=== PATIENT | male | born 1980 | race Caucasian/White ===

== ENCOUNTER 2018-03-06 09:03 | Emergency (ER) | payer BC ==
--- NOTE | 2018-03-06 09:55 | UC ---
Lower Extremity/Ankle HPI - HPI Summary HPI Summary: 37 yo male presents with LEFT foot pain. He tells me that he has a hx of gout and has had it here in the past and was given steroids for it. He has an anti- inflammatory rx from [place] and says that this usually helps when he has gout in his ankle, but he took one last night and has not helped. He denies injury, numbness, or tingling. - History of Current Complaint Chief Complaint: UCLowerExtremity Stated Complaint: FOOT PAIN Time Seen by Provider: 03/06/18 09:55 Hx Obtained From: Patient Onset/Duration: Sudden Onset Severity Initially: Mild Severity Currently: Mild Pain Intensity: 3 Pain Scale Used: 0-10 Numeric - Allergies/Home Medications Allergies/Adverse Reactions: Allergies Allergy/AdvReac Type Severity Reaction Status Date / Time No Known Allergies Allergy Verified 03/06/18 09:23 Home Medications: Home Medications Naproxen Sodium [Naproxen 220 mg] 220 mg PO BID PRN 03/06/18 [History Confirmed 03/06/18] PMH/Surg Hx/FS Hx/Imm Hx - Additional Past Medical History Additional PMH: None - Surgical History Surgical History: Yes Surgery Procedure, Year, and Place: tonsillectomy - Family History Known Family History: Positive: None - Social History Occupation: Employed Full-time Lives: With Family Alcohol Use: Occasionally Substance Use Type: None Smoking Status (MU): Former Smoker When Did the Patient Quit Smoking/Using Tobacco: 8 yrs ago Review of Systems Constitutional: Negative Skin: Negative Respiratory: Negative Cardiovascular: Negative Gastrointestinal: Negative Neurovascular: Negative Musculoskeletal: Other: - Left foot pain Neurological: Negative Psychological: Negative All Other Systems Reviewed And Are Negative: Yes Physical Exam - Summary Physical Exam Summary: GENERAL: NAD. WDWN. No pain distress. SKIN: No rashes, sores, lesions, or open wounds. CHEST: No accessory muscle use. Breathing comfortably and in no distress. CV: Pulses intact PT and DP. Cap refill <2seconds MSK: LEFT FOOT: 2-3MTP with mild TTP. No erythema or edema. No warmth. FROM without pain. NEURO: Alert. Sensations intact and symmetric B/L LEs PSYCH: Age appropriate behavior. Triage Information Reviewed: Yes Vital Signs: Initial Vital Signs Temp 98.0 F 03/06/18 09:17 Pulse 82 03/06/18 09:17 Resp 16 03/06/18 09:17 BP 135/84 03/06/18 09:17 Pulse Ox 100 03/06/18 09:17 Vital Signs Reviewed: Yes Lower Extremity Course/Dx - Course Course Of Treatment: Suspect gout. Will rx for prednisone and advise him to take 800mg ibuprofen every 6-8 hours. He declined XR today and will f/u if his symptoms do not improve. - Differential Dx/Diagnosis Provider Diagnoses: Left foot gout Discharge - Sign-Out/Discharge Documenting (check all that apply): Patient Departure All imaging exams completed and their final reports reviewed: No Studies - Discharge Plan Condition: Stable Disposition: HOME Prescriptions: predniSONE TAB* [Deltasone 20 MG TAB*] 40 mg PO DAILY #7 tab Patient Education Materials: Gout (ED) Referrals: No Primary Care Phys,NOPCP [Primary Care Provider] - Additional Instructions: If you develop a fever, shortness of breath, chest pain, new or worsening symptoms - please call your PCP or go to the ED. Your blood pressure was high at todays visit. Please see your primary provider within 4 weeks for recheck and re-evaluation. - Billing Disposition and Condition Condition: STABLE Disposition: Home
== END 2018-03-06 10:24 | disposition home or self-care (01) ==
LOC: UCEAST 09:03
DX: M10.072 Idiopathic gout, left ankle and foot (principal); Z87.891 Personal history of nicotine dependence
CPT/HCPCS: 99202; G0463